=== PATIENT | female | born 1985 | race Caucasian/White ===

== ENCOUNTER 2024-04-08 14:34 | Emergency (ER) | payer SELFPAY ==
[2024-04-08 14:37] VITALS: BP 125/71; PULSE 79; TEMP 36.4; O2SAT 99; BMI 28.9
[2024-04-08 15:03] LABS: Bilirubin Urine NEGATIVE (NEGATIVE); Blood Urine NEGATIVE (NEGATIVE); Clarity Urine CLEAR (CLEAR); Color Urine YELLOW (YELLOW); Glucose Urine UA NEGATIVE (NEGATIVE); Ketones Urine NEGATIVE (NEGATIVE); Leukocyte Esterase Urine SMALL (NEGATIVE); Nitrite Urine NEGATIVE (NEGATIVE); Protein Urine NEGATIVE (NEG/TRACE); Specific Gravity Urine 1.025 (1.005-1.025); Urobilinogen Urine 0.2 EU/dL (0.2-1.0); pH Urine 6.5 (5.0-9.0)
[2024-04-08 15:04] LABS: Urine Microscopic Indicated YES
[2024-04-08 15:05] LABS: HCG Qualitative Urine* NEGATIVE (NEGATIVE); Internal Control Within Normal Limits
[2024-04-08 15:14] LABS: Bacteria Urine SMALL #/HPF (NONE SEEN); Cast Seen? SEEN #/LPF (NONE SEEN); Crystals Seen? None Seen #/HPF (None Seen); Hyaline Casts Urine RARE; Mucus Urine SMALL (NONE SEEN); Squamous Epithelial Cell Urine MODERATE #/LPF (NONE/RARE); Urine Culture Indicated YES
--- NOTE | 2024-04-08 15:24 | ED_ITS ---
HPI - Abdominal Pain General Chief Complaint: Abdominal Pain Stated Complaint: FLANK PAIN Time Seen by Provider: 04/08/24 14:58 Source: patient Mode of arrival: walk-in Limitations: no limitations History of Present Illness HPI narrative: 38-year-old female presents to the emergency department for abdominal pain. She is pulling to the right lateral anterior abdominal area going into the right lower quadrant. She has had no back pain or flank pain. She has been having this for a few days. No trauma or constipation no dysuria or hematuria. Related Data Previous Rx's ?Medication ?Instructions ?Recorded hydrocodone 5 mg-acetaminophen 325 1 tab PO Q6H PRN pain 5 days #20 04/08/24 mg tablet tabs Allergies Allergy/AdvReac Type Severity Reaction Status Date / Time No Known Drug Allergies Allergy Verified 04/08/24 14:40 Review of Systems ROS Narrative A ten point review of systems is negative except as noted above. PFSH PFSH Social History Little interest or pleasure in doing things: not at all Feeling down, depressed, or hopeless: not at all Exam Narrative Exam Narrative: Nurses note and vital signs reviewed and patient is not hypoxic. General: The patient appears in no apparent distress. Skin: Warm, dry, no pallor noted. There is no rash noted. Head: Normocephalic, atraumatic Eye: Normal conjunctiva, no drainage Ears, Nose, Mouth, and Throat: oral mucosa is moist. Nares patent. Cardiovascular: Regular Rate and Rhythm Respiratory: Patient is in no distress, no accessory muscle use, lungs are clear to auscultation, no wheezing, rales or rhonchi Back: non-tender, no CVA tenderness bilaterally to percussion. GI: Soft and tender in the right lower quadrant only. No masses Musculoskeletal: The patient has no evidence of calf tenderness, no pitting edema, symmetrical pulses noted bilaterally Neurological: A&O, normal speech Psychiatric: Cooperative Constitutional Vital Signs, click to edit/add: Last Vital Signs Temp 97.6 F 04/08/24 14:37 Pulse 79 04/08/24 14:37 Resp 20 04/08/24 14:37 BP 125/71 04/08/24 14:37 Pulse Ox 99 04/08/24 14:37 O2 Del Method Room Air 04/08/24 14:37 Course Vital Signs Vital signs: Vital Signs Temperature 97.6 F 04/08/24 14:37 Pulse Rate 79 04/08/24 14:37 Respiratory Rate 20 04/08/24 14:37 Blood Pressure 125/71 04/08/24 14:37 Pulse Oximetry 99 04/08/24 14:37 Oxygen Delivery Method Room Air 04/08/24 14:37 Temperature 97.6 F 04/08/24 14:37 Pulse Rate 79 04/08/24 14:37 Respiratory Rate 20 04/08/24 14:37 Blood Pressure 125/71 04/08/24 14:37 Pulse Oximetry 99 04/08/24 14:37 Oxygen Delivery Method Room Air 04/08/24 14:37 MDM - Abdominal Pain MDM Narrative Medical decision making narrative: Epiploic appendagitis is found on CAT scan. Findings are discussed thoroughly with the patient and she will be discharged home with a prescription for [place] and she was given IV morphine here. Treatment diagnosis and follow-up were discussed with the patient. Differential Diagnosis Differential diagnosis: Likely abdominal pain, acute appendicitis, constipation and diverticulitis Lab Data Attestation: I reviewed the patient's lab results. Labs: Lab Results 04/08/24 04/08/24 Range/Units 14:49 15:22 WBC 11.7 H (4.0-11.0) 10^3/uL RBC 4.43 (4.20-5.40) 10^6/uL Hgb 13.2 (12.0-16.0) g/dL Hct 39.1 (36.0-48.0) % MCV 88.3 (81.0-99.0) fL MCH 29.8 (26.7-34.0) pg MCHC 33.8 (29.9-35.2) g/dL RDW 12.0 (11.0-15.0) % Plt Count 271 (150-450) 10^3/uL MPV 11.1 (9.5-13.5) fL Neut % (Auto) 77.6 H (43.0-75.0) % Lymph % (Auto) 13.7 L (20.5-60.0) % [place]itchie % (Auto) 6.6 (1.7-12.0) % Eos % (Auto) 1.5 (0.9-7.0) % Baso % (Auto) 0.3 (0.2-2.0) % Neut # (Auto) 9.1 H (1.4-6.5) 10^3/uL Lymph # (Auto) 1.6 (1.2-3.8) 10^3/uL Ritchie # (Auto) 0.8 (0.3-0.8) 10^3/uL Eos # (Auto) 0.2 (0.0-0.7) 10^3/uL Baso # (Auto) 0.0 (0.0-0.1) 10^3/uL Abs Immat Gran (auto) 0.03 (0.00-0.03) 10^3/uL Imm/Tot Granulo (auto) 0.3 (0.0-0.5) % Sodium 145 (136-145) mmol/L Potassium 3.8 (3.5-5.1) mmol/L Chloride 109 H (98-107) mmol/L Carbon Dioxide 27.9 (21.0-32.0) mmol/L Anion Gap 11.9 BUN 12.0 (7.0-18.0) mg/dL Creatinine 0.83 (0.55-1.02) mg/dL Est GFR ( Amer) >60 (>=60 mL/min/1.73m^2) Est GFR (Non-Af Amer) >60 (>=60 mL/min/1.73m^2) BUN/Creatinine Ratio 14.5 Glucose 97 (74-106) mg/dL Calcium 9.1 (8.5-10.1) mg/dL Urine Color Yellow (YELLOW) Urine Clarity Clear (CLEAR) Urine pH 6.5 (5.0-9.0) Ur Specific [place] 1.025 (1.005-1.025) Urine Protein Negative (NEG/TRACE) mg/dL Urine Glucose (UA) Negative (NEGATIVE) mg/dL Urine Ketones Negative (NEGATIVE) mg/dL Urine Occult Blood Negative (NEGATIVE) Urine Nitrite Negative (NEGATIVE) Urine Bilirubin Negative (NEGATIVE) Urine Urobilinogen 0.2 (0.2-1.0) EU/dL Ur Leukocyte Esterase Small A (NEGATIVE) Urine RBC 2-5 A (0-2) #/HPF Urine WBC 5-10 A (NONE SEEN) #/HPF Ur Squamous Epith Cells Moderate A (NONE/RARE) #/LPF Urine Crystals None seen (None Seen) #/HPF Urine Bacteria Small A (NONE SEEN) #/HPF Urine Casts Seen A (NONE SEEN) #/LPF Hyaline Casts Rare Urine Mucus Small A (NONE SEEN) Ur Culture Indicated? Yes Urine HCG, Qual Negative (NEGATIVE) Imaging Data CT scan - abdomen: Radiologist's impression: ITS Impressions Abdomen/Pelvis CT 04/08/24 15:46 IMPRESSION: 1. Right flank inflammatory process lateral to the mid ascending colon suggestive of epiploic appendicitis. This process is separate from a normal-appearing appendix which projects inferomedially from the cecum into the pelvis. No fluid or inflammation around the appendix. 2. Cystic liver lesions largest 1.5 cm felt to be benign. Electronically authenticated by: MARY BROWER Date: 04/08/2024 17:38 ADDENDUM: 04/08/24 181 IMPRESSION: 1. Right flank inflammatory process lateral to the mid ascending colon suggestive of epiploic appendicitis. This process is separate from a normal-appearing appendix which projects inferomedially from the cecum into the pelvis. No fluid or inflammation around the appendix. 2. Cystic liver lesions largest 1. 5 cm felt to be benign. Electronically authenticated by: MARY BROWER Date: 04/08/2024 18:10 There was a typo on the initial x-ray report. The patient does not have epiploic appendicitis, she has epiploic appendagitis. This was discussed with the radiologist. Discharge Plan Discharge Chief Complaint: Abdominal Pain Clinical Impression: Epiploic appendagitis Patient Disposition: Home, Self-Care Time of Disposition Decision: 18:20 Condition: Good Mode of Transportation: Private Vehicle Prescriptions / Home Meds: New hydrocodone-acetaminophen 5-325 mg tablet 1 tab PO Q6H PRN (Reason: pain) 5 Days Qty: 20 0RF Print Language: Japanese Instructions: Epiploic Appendagitis (ED) Referrals: Physician,Non-Staff, MD [Primary Care Provider] - 1 week
[2024-04-08 15:32] LABS: Basophils Percent Auto 0.3 % (0.2-2.0); Eosinophils Absolute Auto 0.2 10^3/uL (0.0-0.7); Eosinophils Percent Auto 1.5 % (0.9-7.0); Hematocrit 39.1 % (36.0-48.0); Hemoglobin 13.2 g/dL (12.0-16.0); Immature Granulocytes Abs Auto 0.03 10^3/uL (0.00-0.03); Immature Granulocytes Pct Auto 0.3 % (0.0-0.5); Lymphocytes Absolute Auto 1.6 10^3/uL (1.2-3.8); Lymphocytes Percent Auto 13.7 % (20.5-60.0); Mean Corpuscular HGB Conc 33.8 g/dL (29.9-35.2); Mean Corpuscular Hemoglobin 29.8 pg (26.7-34.0); Mean Corpuscular Volume 88.3 fL (81.0-99.0); Mean Platelet Volume 11.1 fL (9.5-13.5); Monocytes Absolute Auto 0.8 10^3/uL (0.3-0.8); Monocytes Percent Auto 6.6 % (1.7-12.0); Neutrophils Absolute Auto 9.1 10^3/uL (1.4-6.5); Neutrophils Percent Auto 77.6 % (43.0-75.0); Platelet Count 271 10^3/uL (150-450); Red Blood Count 4.43 10^6/uL (4.20-5.40); White Blood Count 11.7 10^3/uL (4.0-11.0)
[2024-04-08 15:39] LABS: Anion Gap 11.9; BUN Creatinine Ratio 14.5; Calcium 9.1 mg/dL (8.5-10.1); Carbon Dioxide 27.9 mmol/L (21.0-32.0); Chloride 109 mmol/L (98-107); Estimated GFR (African America >60 (>=60 mL/min/1.73m^2); Estimated GFR (Non-African Ame >60 (>=60 mL/min/1.73m^2); Glucose 97 mg/dL (74-106); Potassium 3.8 mmol/L (3.5-5.1); Sodium 145 mmol/L (136-145)
--- NOTE | 2024-04-08 15:46 | CT_ITS ---
The [address] [address] Patient Name: WESLY NIX MRN: [id number] date: 1985 Sex: F Assigned Patient Location: ER Current Patient Location: ER Accession/Order Number: [id number] Exam Date: 04/08/2024 16:10 Report Date: 04/08/2024 17:38 At the request of: MEGHA RECINOS Procedure: CT abdomen pelvis w con EXAM: CT abdomen pelvis w con HISTORY: RLQ pain COMPARISON: CT abdomen pelvis 04/25/2013 TECHNIQUE: CT abdomen pelvis with IV contrast 100 mL Omnipaque 300. Axial scans with reformatted coronal sagittal images. Individualized radiation dose reduction technique used for this exam. FINDINGS: Lower chest: No acute process, lung bases clear. ABDOMEN: Cystic liver lesions again noted largest 1.5 cm left lobe. No solid-appearing mass. Fluid-containing gallbladder without calcified stone. No biliary dilatation. Adrenal glands, pancreas, spleen unremarkable. No abdominal fluid or ascites. No adenopathy. Normal enhancement aorta and branches. Normal venous enhancement. Normal symmetric renal enhancement without solid mass or hydronephrosis, normal ureters. Small cortical cyst left kidney. Graph right lower quadrant inflammation around the mid ascending colon which is new from previous. Inflammation appears to be round and oval fat containing structure suggesting this is upper pole, appendicitis. This is well cephalad lateral to the appendix which projects from the cecum inferior medially into the pelvis and is normal in diameter without surrounding inflammation. Bowel otherwise unremarkable. Large amount of colonic stool. PELVIS : No mass or adenopathy. Questionable small amount of fluid in the right. Fallopian tube closure device again noted. No significant ovarian or adnexal pathology. Normal-appearing bladder. Normal diameter appendix noted in in the upper pelvis. No definite ovarian abnormality seen. MUSCULOSKELETAL: No suspicious bone lesion. Negative for hernia. CT/CT abdomen pelvis w con IMPRESSION: 1. Right flank inflammatory process lateral to the mid ascending colon suggestive of epiploic appendicitis. This process is separate from a normal-appearing appendix which projects inferomedially from the cecum into the pelvis. No fluid or inflammation around the appendix. 2. Cystic liver lesions largest 1.5 cm felt to be benign. Electronically authenticated by: MARY BROWER Date: 04/08/2024 17:38
[2024-04-08] MEDS: MORPHINE SULFATE 4 MG/ML VIAL IV (18:46)
== END 2024-04-08 18:52 | disposition home or self-care (01) ==
PROVIDERS: Emergency Provider Emergency Medicine
DX: K63.89 Other specified diseases of intestine (principal)
CPT/HCPCS: 36415; 74177; 80048; 81001; 84703; 85025; 87086; 96374; 99285; J2270; Q9967